=== PATIENT | male | born 1990 | race American Indian/Alaskan Native ===

== ENCOUNTER 2019-03-01 09:48 | Emergency (ER) | payer SELFPAY ==
[2019-03-01 09:57] VITALS: BP 134/75
--- NOTE | 2019-03-01 11:25 | Emergency Department Report ---
Chief Complaint: Dental/Oral Stated Complaint: TOOTHACHE Time Seen by Provider: 03/01/19 11:20 - HPI History of Present Illness: Mr. Whiteside is a healthy 28-year-old male who presents to the emergency department for dental pain at wisdom tooth. He has a broken tooth with decay. Severe pain. No difficulty swallowing. No dyspnea. I instructed him to use ibuprofen and Tylenol,. Medical screening exam performed. No acute emergent condition at this time. No facial swelling. No signs of infection on brief examination. - Exam Vital Signs: Vital Signs 03/01/19 09:54 Temperature 98.4 F Pulse Rate 56 L Respiratory 20 Rate Blood Pressure 134/75 O2 Sat by Pulse 100 Oximetry MSE screening note: Focused history and physical exam performed. Due to findings the following was ordered: ED Disposition for MSE Condition: Stable Referrals: PRIMARY CAREMD [Primary Care Provider] - 3-5 Days
== END 2019-03-01 11:30 | disposition left against medical advice (07) ==
LOC: ED 09:48
DX: K08.89 Other specified disorders of teeth and supporting structures (principal)